=== PATIENT | male | born 1975 | race Caucasian/White ===

== ENCOUNTER 2017-04-24 08:13 | Day surgery (SDC) | payer BC ==
[2017-04-22 15:51] VITALS: BMI 23.5
[~2017-04-24 08:13] MED LIST: LACTATED RINGERS 1,000 ML IV SCH; LIDOCAINE 1% 20 ML VIAL (10MG/ML) FOR IV START INTRADERMA PRN
[2017-04-24 08:36] VITALS: TEMP 98.2
[2017-04-24] MEDS ORDERED: PROPOFOL 10 MG/ML 20 ML VIAL IV ONE (09:12)
[2017-04-24] MEDS ORDERED: LIDOCAINE 1% INJ 10MG/ML (20 ML MDV) ONE (09:12)
--- NOTE | 2017-04-24 09:15 | P.GSHP ---
History of Present Illness H&P Date: 04/24/17 Chief Complaint: GERD, hiatal hernia This is a 41-year-old male who presents today for EGD. He's had issues with GERD. He has a known hiatal hernia. Past Medical History Past Medical History: GERD/Reflux, Hyperlipidemia Additional Past Medical History / Comment(s): hiatal hernia History of Any Multi-Drug Resistant Organisms: None Reported Past Surgical History: No Surgical Hx Reported Additional Past Surgical History / Comment(s): EGD Past Anesthesia/Blood Transfusion Reactions: No Reported Reaction Smoking Status: Never smoker - Past Family History Father Family Medical History: Cancer Medications and Allergies Home Medications Medication Instructions Recorded Confirmed Type Cholecalciferol [Vitamin D3] 400 unit PO DAILY 04/07/15 04/22/17 History Pravastatin Sodium [Pravachol] 40 mg PO HS 04/07/15 04/22/17 History Ubidecarenone [Co Q-10] 100 mg PO DAILY 04/07/15 04/22/17 History Ranitidine HCl 150 mg PO BID 04/22/17 04/22/17 History Allergies Allergy/AdvReac Type Severity Reaction Status Date / Time No Known Allergies Allergy Verified 04/24/17 08:26 Surgical - Exam Vital Signs Temp Pulse Resp BP Pulse Ox 98.2 F 79 18 118/78 95 04/24/17 08:35 04/24/17 08:35 04/24/17 08:35 04/24/17 08:35 04/24/17 08:35 - General well developed, no distress - Eyes PERRL - ENT normal pinna - Neck no masses - Respiratory normal expansion - Cardiovascular Rhythm: regular - Abdomen Abdomen: soft, non tender Assessment and Plan Assessment: GERD, hiatal hernia. We'll perform EGD and colonoscopy.
--- NOTE | 2017-04-24 09:22 | P.OP ---
Date of Procedure: 04/24/17 Preoperative Diagnosis: GERD Postoperative Diagnosis: Antral gastritis Hiatal hernia Esophagitis Procedure(s) Performed: EGD Anesthesia: MAC Surgeon: Juan Causey Pathology: other (Antrum, esophagus) Condition: stable Disposition: PACU Description of Procedure: The patient's placed on the endoscopy table in the lateral position. He received IV sedation. The gastroscope placed oropharynx passed in the esophagus and stomach. Scope was then placed through the pylorus. First and second portion of the duodenum appeared normal. Scope was then brought back the antrum this. Mildly inflamed. A biopsies performed. The scope was then retroflexed and the patient had a moderate size hiatal hernia. The GE junction was at 38 7 is. The distal esophagus was mildly inflamed a biopsies performed. The proximal esophagus appeared normal. Scope was withdrawn for patient.
[2017-04-24 09:27] VITALS: RESP 16
[2017-04-24 09:53] VITALS: BP 108/81; PULSE 68
== END 2017-04-24 09:54 | disposition home or self-care (01) ==
LOC: ORWHC2ENDO 08:13
PROVIDERS: ATTEND Surgery
DX: K21.0 Gastro-esophageal reflux disease with esophagitis (principal); K20.0 Eosinophilic esophagitis; K29.50 Unspecified chronic gastritis without bleeding; K44.9 Diaphragmatic hernia without obstruction or gangrene; E78.5 Hyperlipidemia, unspecified; Z79.899 Other long term (current) drug therapy
CPT/HCPCS: 43239; 88305; 88342; J2001; J2704

== ENCOUNTER → 2017-06-06 | Outpatient (CLI) | payer BC ==
--- NOTE | 2017-06-10 08:04 | MR ---
EXAMINATION TYPE: MR shoulder RT wo con DATE OF EXAM: 06/10/2017 COMPARISON: Outside right shoulder x-ray February 11, 2017 HISTORY: Right shoulder pain per order. Pain with difficulty raising arm overhead for 6 months per pa tient. TECHNIQUE: Multiplanar, multisequence imaging of the right shoulder is performed without contrast. FINDINGS: Rotator Cuff: Supraspinatus and infraspinatus tendons are both intact to humeral head attachment. George e increased signal distal fibers is identified. No suspicious partial or full-thickness retracted tea r is seen. Subscapularis tendon is intact. Rotator cuff muscle bulk is preserved. Acromioclavicular Joint: Acromioclavicular joint is maintained. Distal acromion morphology is unremar kable. Glenohumeral Joint: There are small to moderate-sized glenohumeral joint effusion. No significant spu rring is seen. Labrum: The labrum appears grossly intact given limitation of non-arthrogram study. Biceps Tendon: The long head of biceps is in normal location within bicipital groove. Surrounding flu id is likely product of adjacent glenohumeral joint effusion. Bone marrow signal: Mild increased signal distal clavicle could reflect edema related to inflammatory change or bone marrow contusion. Other: No additional significant abnormality is appreciated. IMPRESSION: 1. Mild tendinosis of distal supraspinatus and infraspinatus tendons. No full-thickness rotator cuff or labral tear seen. 2. Mild to moderate focal bone marrow edema or osseous contusion distal clavicle.
== END | disposition home or self-care (01) ==
LOC: RADMRIMAIN 16:55
PROVIDERS: ATTEND Orthopaedic Surgery
DX: M67.813 Other specified disorders of tendon, right shoulder (principal)

== ENCOUNTER → 2017-08-15 | Outpatient (CLI) | payer BC ==
[2017-08-15 07:35] LABS: Basophils % (A) 1 %; Eosinophils # (A) 0.4 k/uL (0-0.7); Eosinophils % (A) 6 %; HCT 45.5 % (39.0-53.0); HGB 15.2 gm/dL (13.0-17.5); Lymphocytes # (A) 2.1 k/uL (1.0-4.8); Lymphocytes % (A) 38 %; MCH 30.2 pg (25.0-35.0); MCHC 33.4 g/dL (31.0-37.0); MCV 90.2 fL (80.0-100.0); Mean Platelet Volume 7.7; Monocytes # (A) 0.3 k/uL (0-1.0); Monocytes % (A) 5 %; Neutrophils # (A) 2.7 k/uL (1.3-7.7); Neutrophils % (A) 47 %; Platelet Count 216 k/uL (150-450); RBC 5.05 m/uL (4.30-5.90); RDW 12.6 % (11.5-15.5); WBC 5.6 k/uL (3.8-10.6)
[2017-08-15 07:51] LABS: Potassium 4.3 mmol/L (3.5-5.1)
== END | disposition home or self-care (01) ==
LOC: LABPAT 06:38
PROVIDERS: ATTEND Orthopaedic Surgery
DX: Z01.812 Encounter for preprocedural laboratory examination (principal); M75.41 Impingement syndrome of right shoulder
CPT/HCPCS: 36415; 80051; 85025

== ENCOUNTER 2017-08-27 07:49 | Day surgery (SDC) | payer BC ==
[2017-08-21 15:06] VITALS: BMI 23.5
--- NOTE | 2017-08-26 10:28 | HP ---
HISTORY AND PHYSICAL Surgery is scheduled for 08/27/2017. Gato Gonzalez is a 42-year-old patient seen with progressive right shoulder pain. We discussed treatment options. He elected to proceed with arthroscopy. Consent was obtained. PAST MEDICAL HISTORY: His past medical history is hyperlipidemia. PAST SURGICAL HISTORY: Past surgical history is noncontributory. DAILY MEDICATIONS: Pravastatin. ALLERGIES: None reported. SOCIAL HISTORY: Patient denies tobacco use. PHYSICAL EXAMINATION: Physical evaluation right shoulder: Flexion is 170 degrees, abduction 160 degrees, external rotation 70 degrees with some discomfort. Tenderness along the anterolateral acromion and rotator cuff insertion site. Positive impingement sign at 90 degrees. Distal neurovascular exam is intact. Right shoulder radiographs revealed a type 2 anterior acromion, cystic changes of the greater tuberosity. An MRI of the right shoulder revealed rotator cuff tendinitis, edema of the distal clavicle as well as glenohumeral joint effusion. IMPRESSION: 1. Right shoulder impingement with labral tear versus rotator cuff tear. 2. Right shoulder acromioclavicular joint osteoarthritis. 3. Hyperlipidemia. PLAN: Right shoulder arthroscopy with subacromial decompression, possible arthroscopic rotator cuff repair probable [place] procedure and debridement. MMODL / IJN: [id number] /
[~2017-08-27 07:49] MED LIST changes: +HYDROmorphone 0.5 MG/0.5 ML SYRINGE IVP PRN; -LIDOCAINE 1% 20 ML VIAL (10MG/ML) FOR IV START INTRADERMA PRN; +MIDAZOLAM 2 MG/2 ML VIAL IV PRN; +MORPHINE SULFATE 4 MG/ML SYRINGE IV PRN; +ONDANSETRON 4 MG/2 ML VIAL IVP PRN; +ceFAZolin 1,000 MG in DEXTROSE/WATER 1 50ML.BAG IV ONE; +fentaNYL (PF) 50 MCG/ML 20 ML VIAL IVP PRN
[2017-08-27] MEDS ORDERED: LIDOCAINE 1% 20 ML VIAL (10MG/ML) FOR IV START INTRADERMA ONE (08:22)
[2017-08-27] MEDS ORDERED: fentaNYL (PF) 50 MCG/ML 2 ML AMP ONE ×2 (08:30→10:56)
[2017-08-27] MEDS ORDERED: PROPOFOL 10 MG/ML 20 ML VIAL IV ONE (10:56)
[2017-08-27] MEDS ORDERED: MIDAZOLAM 2 MG/2 ML VIAL ONE (10:56)
[2017-08-27] MEDS ORDERED: LIDOCAINE 2%-EPI 1:100,000 20 ML VIAL ONE (10:56)
[2017-08-27] MEDS ORDERED: ROPIVACAINE 5 MG/ML 30 ML VIAL ONE (10:56)
[2017-08-27] MEDS ORDERED: ePHEDrine SULFATE/0.9% NACL/PF 50 MG/5 ML SYRINGE IV ONE (10:56)
[2017-08-27] MEDS ORDERED: SUCCINYLCHOLINE CHLORIDE 100 MG/5 ML SYR IV ONE (10:56)
[2017-08-27] MEDS ORDERED: LIDOCAINE 1% INJ 10MG/ML (20 ML MDV) ONE (10:56)
[2017-08-27] MEDS ORDERED: LACTATED RINGERS 1,000 ML IV ONE (11:26)
--- NOTE | 2017-08-27 12:31 | P.OP ---
Date of Procedure: 08/27/17 Preoperative Diagnosis: Right shoulder impingement Postoperative Diagnosis: 1. Right shoulder rotator cuff tear 2. Right shoulder impingement 3. Right shoulder acromioclavicular joint osteoarthritis 4. Right shoulder superficial anterior labral tear Procedure(s) Performed: 1. Right shoulder arthroscopic rotator cuff repair 2. Right shoulder arthroscopic subacromial decompression 3. Right shoulder arthroscopic Litzy procedure 4. Right shoulder arthroscopic debridement labral tear Implants: 1-4.5 peek anchor Anesthesia: GETA, regional (Interscalene block) Surgeon: Johnson Cuellar Hims Manager #1: Alfa Gordillo Estimated Blood Loss (ml): 10 Pathology: none sent Condition: stable Disposition: PACU Indications for Procedure: 42-year-old patient seen with progressive right shoulder pain. After treatment options were discussed, he elected to proceed with arthroscopy. Operative Findings: see description of procedure Description of Procedure: Patient underwent a shoulder block by department of anesthesia. The patient was then taken to the operative suite. The patient underwent a general anesthetic by the department of anesthesia. The patient was placed into a lateral position and secured. There was appropriate padding of the bony prominence. Right shoulder was then prepped and draped in normal sterile orthopedic fashion. We placed the extremity in 10 pounds of longitudinal traction. A posterior incision was now made for a posterior working portal site. The trocar and cannula were inserted into the glenohumeral joint. Arthroscopy was initiated. Spinal needle was now inserted anteriorly, to ascertain the anterior working portal site. An incision was now made in that area, a trocar was inserted followed by a probe. There was a very small superficial anterior labral tear. The remaining labrum appeared intact and stable. The biceps was intact and stable. The glenohumeral joint was intact and stable. There were no loose bodies. There was no chondromalacia. I debrided that small labral tear down to stable tissue. The residual labrum was stable. Instruments were now removed from glenohumeral joint. Utilizing the posterior working portal site, the trocar and cannula were inserted into the subacromial space. Arthroscopy initiated. I made an incision 2 fingerbreadths lateral to the acromion. I introduced my trocar followed by my [employer]throCare ablator. I now began ablating thick subacromial bursal tissue, which exposed the undersurface of the anterior acromion. This was diminished subacromial space. There was a very prominent anterior acromion. A motorized bur was introduced and a subacromial decompression was performed. I also excised some osteophytes off the inferior aspect of the distal clavicle. The AC joint was visualized and noted to be fairly arthritic. Our motorized bur was introduced in the anterior portal site and a Litzy procedure was performed without difficulty, decompressing the AC joint nicely. I turned my attention to the rotator cuff. There was some partial tearing noted along the very distal supraspinatus. Once I debrided that down to stable tissue we did note a through and through perforation. I debrided the margins gained down to stable tendon tissue. We had about a 1 cm tear/defect. I abraded the footprint with a motorized bur. I passed 2 everted mattress sutures with good bites of rotator cuff tendon. I repaired the tendon back to the footprint with one single anchor. The sutures were clipped. The repair was stable. I injected 1 mL of UCT intra-articular. Instruments now removed from the portal sites. All portal sites were approximated with nylon suture. Sterile dressings were applied followed by a shoulder immobilizer. Terrance GARIBAY assisted with the procedure. The patient was awakened, transferred to a bed, and taken to recovery in stable condition.
[2017-08-27 12:34] VITALS: TEMP 97.4
[2017-08-27] MEDS ORDERED: KETOROLAC 30 MG/ML 1 ML VIAL IVP ONE (12:45)
[2017-08-27] MEDS ORDERED: diphenhydrAMINE 50 MG/ML 1 ML VIAL IVP ONE (12:48)
[2017-08-27] MEDS: MEPERIDINE 50 MG/ML SYRINGE IVP ONE ×2 (12:48→13:22)
[2017-08-27] MEDS ORDERED: HYDROcodone/APAP 7.5-325MG 1 EACH TAB PO ONE (14:26)
[2017-08-27 15:16] VITALS: BP 123/81; PULSE 85; RESP 18
== END 2017-08-27 15:59 | disposition home or self-care (01) ==
LOC: OR 07:49
PROVIDERS: ATTEND Orthopaedic Surgery
DX: M75.101 Unspecified rotator cuff tear or rupture of right shoulder, not specified as traumatic (principal); M75.41 Impingement syndrome of right shoulder; S43.491A Other sprain of right shoulder joint, initial encounter; X58.XXXA Exposure to other specified factors, initial encounter; M19.011 Primary osteoarthritis, right shoulder; M25.711 Osteophyte, right shoulder; E78.5 Hyperlipidemia, unspecified; K21.9 Gastro-esophageal reflux disease without esophagitis; Z79.899 Other long term (current) drug therapy
CPT/HCPCS: 64415

== ENCOUNTER → 2020-03-30 | Day surgery (SDC) | payer BC, OTHER ==
[2020-03-27 16:09] VITALS: BMI 23.5
[~2020-03-30] MED LIST changes: -HYDROmorphone 0.5 MG/0.5 ML SYRINGE IVP PRN; -MIDAZOLAM 2 MG/2 ML VIAL IV PRN; -MORPHINE SULFATE 4 MG/ML SYRINGE IV PRN; -ONDANSETRON 4 MG/2 ML VIAL IVP PRN; +PROPOFOL 10 MG/ML 20 ML VIAL IV ONE; -ceFAZolin 1,000 MG in DEXTROSE/WATER 1 50ML.BAG IV ONE; -fentaNYL (PF) 50 MCG/ML 20 ML VIAL IVP PRN
[2020-03-30 09:54] VITALS: RESP 16; TEMP 98.8
--- NOTE | 2020-03-30 11:03 | P.GSHP ---
History of Present Illness H&P Date: 03/30/20 Chief Complaint: GERD Is a 44-year-old male with history of hiatal hernia. Patient presents today for EGD he's had issues with GERD. Past Medical History Past Medical History: GERD/Reflux, Hyperlipidemia Additional Past Medical History / Comment(s): Hiatal Hernia. History of Any Multi-Drug Resistant Organisms: None Reported Past Surgical History: Orthopedic Surgery Additional Past Surgical History / Comment(s): RT ROTATOR CUFF. EGD Past Anesthesia/Blood Transfusion Reactions: No Reported Reaction Smoking Status: Never smoker - Past Family History Father Family Medical History: Cancer Additional Family Medical History / Comment(s): MELANOMA Medications and Allergies Home Medications Medication Instructions Recorded Confirmed Type Ubidecarenone [Co Q-10] 100 mg PO DAILY 04/07/15 03/30/20 History Omeprazole 40 mg PO DAILY 08/21/17 03/30/20 History Rosuvastatin Calcium [Crestor] 10 mg PO HS 09/01/18 03/30/20 History Magnesium 1 tab PO DAILY 03/27/20 03/30/20 History Multivitamins, Thera [Multivitamin 1 tab PO DAILY 03/27/20 03/30/20 History (formulary)] Allergies Allergy/AdvReac Type Severity Reaction Status Date / Time gluten Allergy lower Verified 03/30/20 09:56 throat irritation Surgical - Exam Vital Signs Temp Pulse Resp BP Pulse Ox 98.8 F 73 16 126/87 96 03/30/20 09:52 03/30/20 09:52 03/30/20 09:52 03/30/20 09:52 03/30/20 09:52 - General well developed, well nourished, no distress - Eyes PERRL - ENT normal pinna - Neck no masses - Respiratory normal expansion - Cardiovascular Rhythm: regular - Abdomen Abdomen: soft, non tender Assessment and Plan Assessment: GERD. We'll perform EGD.
--- NOTE | 2020-03-30 11:11 | P.OP ---
Date of Procedure: 03/30/20 Preoperative Diagnosis: GERD Postoperative Diagnosis: Antral gastritis Hiatal hernia Esophagitis Procedure(s) Performed: EGD Anesthesia: MAC Surgeon: Juan Causey Pathology: other (Antrum, esophagus) Condition: stable Disposition: PACU Description of Procedure: The patient's placed on the endoscopy table lateral position. He received IV sedation. The gastroscope oropharynx passed in the esophagus and stomach. Scope then placed through the pylorus. The first and second portion of duodenum appeared normal. Scope was then brought back the antrum and this appeared mildly inflamed. A biopsies performed. The scope was unretroflexed and the remainder of the stomach appeared normal. Patient had a moderate size hiatal hernia. The GE junction was at 38 cm. The distal esophagus appeared mildly inflamed a biopsies performed. The proximal esophagus appeared normal. Scope was withdrawn for patient.
[2020-03-30 11:26] VITALS: BP 119/76
[2020-03-30 11:43] VITALS: PULSE 61
== END ==
LOC: ORWHC2ENDO 09:37
PROVIDERS: ATTEND Surgery
DX: K29.50 Unspecified chronic gastritis without bleeding (principal); K44.9 Diaphragmatic hernia without obstruction or gangrene; K21.00 Gastro-esophageal reflux disease with esophagitis, without bleeding; E78.5 Hyperlipidemia, unspecified; Z98.890 Other specified postprocedural states; Z80.8 Family history of malignant neoplasm of other organs or systems; Z79.899 Other long term (current) drug therapy; Z91.02 Food additives allergy status
CPT/HCPCS: 88305; 43239; J2704

== ENCOUNTER 2021-11-08 08:16 | Day surgery (SDC) | payer BC ==
[2021-11-06 15:40] VITALS: BMI 23.5
[2021-11-08] MEDS ORDERED: LACTATED RINGERS 1,000 ML IV SCH (08:56)
[2021-11-08 09:06] VITALS: RESP 16; TEMP 97.3
[2021-11-08] MEDS ORDERED: PROPOFOL 10 MG/ML 20 ML VIAL IV ONE (09:32)
[2021-11-08] MEDS ORDERED: LIDOCAINE 2% INJ 20 MG/ML (2 ML VIAL) ONE (09:32)
--- NOTE | 2021-11-08 09:35 | P.GSHP ---
History of Present Illness H&P Date: 11/08/21 Chief Complaint: GERD, dysphagia This a 46-year-old male with history of hiatal hernia. Patient will stay for EGD. Past Medical History Past Medical History: GERD/Reflux, Hyperlipidemia Additional Past Medical History / Comment(s): Hiatal Hernia. occ "full feeling", History of Any Multi-Drug Resistant Organisms: None Reported Past Surgical History: Orthopedic Surgery Additional Past Surgical History / Comment(s): RT ROTATOR CUFF, . EGD, Past Anesthesia/Blood Transfusion Reactions: No Reported Reaction Smoking Status: Never smoker - Past Family History Father Family Medical History: Cancer Additional Family Medical History / Comment(s): MELANOMA Medications and Allergies Home Medications Medication Instructions Recorded Confirmed Type Ubidecarenone [Co Q-10] 100 mg PO DAILY 04/07/15 11/08/21 History Omeprazole 40 mg PO DAILY 08/21/17 11/08/21 History Rosuvastatin Calcium [Crestor] 10 mg PO HS 09/01/18 11/08/21 History Magnesium 1 tab PO DAILY 03/27/20 11/08/21 History Multivitamins, Thera [Multivitamin 1 tab PO DAILY 03/27/20 11/08/21 History (formulary)] Allergies Allergy/AdvReac Type Severity Reaction Status Date / Time gluten Allergy lower Verified 11/06/21 15:33 throat irritation Surgical - Exam Vital Signs Temp Pulse Resp BP Pulse Ox 97.3 F L 62 16 115/76 97 11/08/21 09:00 11/08/21 09:00 11/08/21 09:00 11/08/21 09:00 11/08/21 09:00 - General well developed, well nourished, no distress - Eyes PERRL - ENT normal pinna - Neck no masses - Respiratory normal expansion - Cardiovascular Rhythm: regular - Abdomen Abdomen: soft, non tender Assessment and Plan Assessment: GERD, dysphagia. History of hiatal hernia. Patient will undergo EGD today.
--- NOTE | 2021-11-08 09:45 | P.OP ---
Date of Procedure: 11/08/21 Preoperative Diagnosis: GERD Postoperative Diagnosis: Esophagitis Hiatal hernia Procedure(s) Performed: EGD Anesthesia: MAC Surgeon: Juan Causey Pathology: other (Esophagus) Condition: stable Disposition: PACU Description of Procedure: Patient's placed on the endoscopy table in the lateral position. He received IV sedation. The gastro-/oropharynx passed in the esophagus into the stomach. Scope was placed through the pylorus. The first and second portion of the duodenum appeared normal. Scope was then brought back the antrum and this appeared mildly inflamed. A biopsies performed. The scope was unretroflexed and remainder the stomach appeared normal. The patient had a moderate size hia hernan hernia. The GE junction was at 38 cm. The distal esophagus was minimal inflamed. A biopsies performed. The proximal esophagus appeared normal. The scope was withdrawn for patient.
[2021-11-08 10:42] VITALS: BP 110/78; PULSE 55
== END 2021-11-08 10:43 | disposition home or self-care (01) ==
LOC: ORWHC2ENDO 08:16
PROVIDERS: ATTEND Surgery
DX: K21.00 Gastro-esophageal reflux disease with esophagitis, without bleeding (principal); K44.9 Diaphragmatic hernia without obstruction or gangrene; E78.5 Hyperlipidemia, unspecified; Z80.8 Family history of malignant neoplasm of other organs or systems
CPT/HCPCS: 43239; 88305; J2704; J2001

== ENCOUNTER → 2023-01-23 | Day surgery (SDC) | payer BC ==
[~2023-01-23] MED LIST changes: +LACTATED RINGERS 1,000 ML IV ONE; -LACTATED RINGERS 1,000 ML IV SCH; +LIDOCAINE 2% INJ 20 MG/ML (2 ML VIAL) ONE
[2023-01-23 07:32] VITALS: TEMP 97.8
--- NOTE | 2023-01-23 08:03 | P.GSHP ---
History of Present Illness H&P Date: 01/23/23 Chief Complaint: Screening colonoscopy Is a 47-year-old male presents today for screening colonoscopy. Patient denies any significant GI complaints. Past Medical History Past Medical History: GERD/Reflux, Hyperlipidemia Additional Past Medical History / Comment(s): Routine colonoscopy. Hiatal hernia History of Any Multi-Drug Resistant Organisms: None Reported Past Surgical History: Orthopedic Surgery Additional Past Surgical History / Comment(s): RT ROTATOR CUFF, EGD, Past Anesthesia/Blood Transfusion Reactions: No Reported Reaction Additional Past Anesthesia/Blood Transfusion Reaction / Comment(s): Pt has never received blood Smoking Status: Never smoker - Past Family History Father Family Medical History: Cancer Additional Family Medical History / Comment(s): MELANOMA Medications and Allergies Home Medications Medication Instructions Recorded Confirmed Type Ubidecarenone [Co Q-10] 100 mg PO QAM 04/07/15 01/17/23 History Omeprazole 40 mg PO QAM 08/21/17 01/17/23 History Rosuvastatin Calcium [Crestor] 10 mg PO HS 09/01/18 01/23/23 History Magnesium 1 tab PO QAM 03/27/20 01/17/23 History Multivitamins, Thera [Multivitamin 1 tab PO QAM 03/27/20 01/17/23 History (formulary)] Allergies Allergy/AdvReac Type Severity Reaction Status Date / Time gluten Allergy lower Verified 01/23/23 07:24 throat irritation Surgical - Exam Vital Signs Temp Pulse Resp BP Pulse Ox 97.8 F 63 18 112/70 95 01/23/23 07:31 01/23/23 07:31 01/23/23 07:31 01/23/23 07:31 01/23/23 07:31 - General well developed, well nourished, no distress - Eyes PERRL - ENT normal pinna - Neck no masses - Respiratory normal expansion - Cardiovascular Rhythm: regular - Abdomen Abdomen: soft, non tender Assessment and Plan Assessment: We'll perform screening colonoscopy.
--- NOTE | 2023-01-23 08:14 | P.OP ---
Date of Procedure: 01/23/23 Preoperative Diagnosis: Screening colonoscopy Postoperative Diagnosis: Normal colon Procedure(s) Performed: Colonoscopy Anesthesia: MAC Surgeon: Juan Causey Pathology: none sent Condition: stable Disposition: PACU Description of Procedure: PROCEDURE: The patient was placed on the endoscopy table in the lateral position. Digital rectal examination was performed which revealed no abnormalities. The prostate was symmetrical without nodules. Flexible colonoscope was then placed in the patient's anus and passed throughout the entire colon. The ileocecal valve was visualized. The cecum, ascending, transverse, descending and sigmoid colon were normal. The rectum was normal as well. There were no masses, polyps or diverticula noted in the entire colon. SUMMARY OF FINDINGS: Normal colonoscopy.
[2023-01-23 08:19] VITALS: RESP 14
[2023-01-23 08:38] VITALS: BP 105/75; PULSE 63
== END | disposition home or self-care (01) ==
LOC: ORWHC2ENDO 07:09
PROVIDERS: ATTEND Surgery
DX: Z12.11 Encounter for screening for malignant neoplasm of colon (principal); K21.9 Gastro-esophageal reflux disease without esophagitis; E78.5 Hyperlipidemia, unspecified; Z98.890 Other specified postprocedural states; Z80.9 Family history of malignant neoplasm, unspecified; Z91.018 Allergy to other foods; Z79.899 Other long term (current) drug therapy
CPT/HCPCS: 45378; J2704; J2001